=== PATIENT | female | born 1950 | race Caucasian/White ===

== ENCOUNTER → 2016-06-26 | Outpatient (CLI) | payer OTHER ==
[~2016-06-26] MED LIST: LIDOCAINE 1% 30 ML SDV ONE; NA BICARBONATE 50 MEQ/50 ML VIAL ONE
--- NOTE | 2016-06-26 13:59 | DX ---
AP portable chest - June 26, 2016 Indication: Evaluate pneumothorax after thoracentesis. Comparison: May 05, 2016. Findings: There is evacuation of right-sided pleural effusion. No pneumothorax. Left-sided port and bilateral breast implants are noted. Impression: No pneumothorax after right-sided thoracentesis.
--- NOTE | 2016-06-26 16:45 | US ---
Ultrasound-guided right thoracentesis Indication: Breast cancer. New onset pleural effusion. Informed consent: Obtained from the patient. Risks and benefits were discussed. Crosscutting Measure: Patient's current list of medications including all known prescriptions, over- the-counters, herbals, and vitamin/mineral/dietary supplements are reviewed. Medications' name, dosa ge, frequency, and route of administration are confirmed. The patient is a non-smoker. Prophylactic Antibiotic: Cefazolin was not ordered and administered for antimicrobial prophylaxis be cause it was not medically necessary. VTE Prophylaxis: There is not an order for VTE prophylaxis to be given within 24 hours of the proced ure end time. VTE prophylaxis was not given because it was not medically necessary. Technique: Patient was placed in upright position. A "timeout" procedure was performed to identify the correct patient and the correct procedure. 1% Xylocaine was used for local anesthetic. All jona ments of maximal sterile barrier technique including cap, mask, sterile gown, sterile gloves, large s terile sheet, hand hygiene, and 2% chlorhexidine for cutaneous antisepsis, followed. Ultrasound evaluation of potential access site was performed. A permanent recording was created for t he patient's record. When ultrasound is used, sterile gel and probe covers are used. 6-Turkmen Yueh needle was inserted via intercostal approach of the posterolateral chest. Of note, the lung edge seems to come across pretty close to the lateral edge. A small window was there to enter th e pleural effusion. Ultrasound guidance confirms satisfactory placement of the needle. 600 mL of slightly serosanguineous, yellowish pleural effusion were aspirated, and sent for requested labs. Patient tolerated the procedure well. Impression: Ultrasound-guided right thoracentesis, yielding 600 mL of serosanguineous pleural effusio n, sent for requested labs.
== END ==
LOC: FIMAGING 12:22
PROVIDERS: ATTEND Internal Medicine Hematology & Oncology
PROC: 0W993ZZ Drainage of Right Pleural Cavity, Percutaneous Approach (ICD-10-PCS; principal; 2016-06-26)
DX: C50.919 Malignant neoplasm of unspecified site of unspecified female breast (principal); J91.0 Malignant pleural effusion

== ENCOUNTER 2016-07-24 13:35 | Inpatient (IN) | payer OTHER ==
[2016-07-24] MEDS ORDERED: PROMETHAZINE HCL 25 MG TAB PO PRN (14:41)
[2016-07-24] MEDS ORDERED: oxyCODONE IR 5 MG TAB PO PRN (14:41)
[2016-07-24] MEDS ORDERED: ONDANSETRON DISINTEGRATING 4 MG TAB PO PRN ×2 (14:41→15:51)
[2016-07-24] MEDS ORDERED: PROMETHAZINE HCL 25 MG/ML INJ IVP PRN (14:41)
[2016-07-24] MEDS ORDERED: ONDANSETRON 4 MG/2 ML VIAL IVP PRN (14:41)
[2016-07-24] MEDS ORDERED: LORazepam 1 MG TAB PO PRN (15:50)
--- NOTE | 2016-07-24 15:54 | PDGENHP ---
History and Physical - Chief Complaint Acute nausea - History of Present Illness Primary oncologist: Dr. Nice HPI: 66-year-old female presenting with acute nausea characterized as a queasiness located in the anterior abdomen with associated ileus vomiting, shortness of breath onset of symptoms approximately 3 weeks ago. She notes that she initially felt like she was experiencing abdominal distension 3 weeks ago and duration has been persistent thereafter. She also noted shortness of breath which is exacerbated by ambulating upstairs or lying supine. Her nausea is exacerbated by oral intake of solids and liquids, alleviated by bowel rest. She reports that her last bowel movement was yesterday and was normal appearing. She denies any urinary symptoms although her poor oral intake of liquids has resulted in poor urine output. She utilizes Ativan as needed to sleep and she has tolerated Zofran in the past but has not received particular benefit from it. History Information - Allergies/Home Medication List Allergies/Adverse Reactions: ciprofloxacin Allergy (Verified 05/04/16 14:23) Home Medications: Hydrochlorothiazide [HCTZ (*)] 12.5 mg PO DAILY 07/24/16 [Last Taken 07/23/16] LORAZEPAM [LORAZEPAM] 0.5 - 1.5 mg PO HS 07/24/16 [Last Taken 07/23/16 1.5] I have personally reviewed and updated: family history, medical history, social history, surgical history - Past Medical History Additional medical history: Breast cancer diagnosed 1992, stage IV, status post surgery, XRT, chemotherapy, recently initiated on Herceptin in April of 2016 most recent dosage was 4 days ago. Fibromyalgia. Anxiety disorder. Osteoarthritis. Chronic leukocytosis with baseline white blood cell count 10, 000-14,000. Chronic transaminitis since February of 2016 - Surgical History Additional surgical history: Thoracentesis 06/26/2016. Bilateral mastectomy. Breast biopsy. Lumpectomy. Carpal tunnel surgery. Knee surgery. Tonsillectomy. - Family History Additional family history: No family history of venous thromboembolism, no recent sick family contacts - Social History Smoking Status: Former smoker Alcohol Use: None Drug Use: None Additional social history: Independent in ADLs Review of Systems ROS: 10pt was reviewed & negative except for what was stated in HPI & below Constitutional: Reports: malaise, weakness Respiratory: Reports: shortness of breath Gastrointestinal: Reports: vomitting, nausea Physical Exam Temp Pulse Resp BP Pulse Ox 36.7 C 99 21 H 174/105 H 93 07/24/16 15:22 07/24/16 15:22 07/24/16 15:22 07/24/16 15:22 07/24/16 15:22 O2 (L/minute) 2 Constitutional: not in pain, chronically ill appearing, uncomfortable, cachectic Eyes: PERRL, anicteric sclera, EOMI Ears, Nose, Mouth, Throat: hearing normal, ears appear normal, other (Dry mucous membranes) Cardiovascular: systolic murmur (106 systolic murmur at the sternum), tachycardia, No irregularly irregular, No edema Respiratory: reduced air movement (Right base), inspiratory crackles (Left base) , No expiratory wheeze, No bronchial breath sounds Gastrointestinal: normoactive bowel sounds, ascites, distension (Moderate), other (Nontender hepatomegaly) Genitourinary: no bladder fullness, other (Potential bladder tenderness) Skin: warm, normal color, no rashes or abrasions, no fluctuance, no induration, No mottled Neurologic: AAOx3, sensation intact bilaterally, No weakness Psychiatric: interacting appropriately, not anxious, not encephalopathic, thought process linear Lab Data & Imaging Review Visualized and Interpreted Chest x-ray results: Yes Chest X-Ray results: other (Right effusion has cleared status post thoracentesis ) Assessment & Plan Assessment: 66-year-old female presenting with acute nausea and vomiting in the setting of metastatic breast cancer, new onset ascites Plan: 1. Nausea and vomiting. Acute, new problem, further workup indicated. Although it is most likely secondary to combination of metastatic liver lesions as well as ascites, spontaneous bacterial peritonitis should be ruled out as should urinary tract infection -get urinalysis -get diagnostic and therapeutic paracentesis with ultrasound guidance -treat supportively with Zofran and Ativan as needed -low rate IV fluids -advance diet as tolerates 2. Ascites. New onset, with leukocytosis and abdominal symptoms, rule out SBP with paracentesis at this time 3. Stage IV breast cancer. Discussed with [facility] nurse practitioner Bella, she has reported to me that Dr. Bee has been contacted and will consult in this patient's care, has also requested CT of the chest abdomen and pelvis with IV contrast for restaging (evaluating previous right- sided pleural effusion which also appears to be recurrent on physical exam, evaluating known liver lesions, evaluating for carcinamatosis) 4. Transaminitis. Reviewed outside records including last time the patient's liver enzymes were within normal range, 03/27/2016 liver panel, most likely secondary to her liver metastases -the patient denies any recent alcohol intake -avoid Tylenol -get abdominal imaging as outlined above 5. Severe protein calorie malnutrition. Evidenced by proximal muscle wasting, cachexia, in the setting of stage IV malignancy -get dietary consult -Ensure with meals Diet. Regular diet with Ensure Prophylaxis. High risk patient, Lovenox 40 Code. Full, per patient, and daughter are MPOA. Disposition. Anticipated discharge uncertain this time, anticipated length stay is greater than 48 hours warranting inpatient admission status for acute nausea and vomiting in the setting of new onset ascites warranting further workup and therapeutic treatment in the setting of high risk comorbid stage IV breast cancer protein calorie malnutrition, transaminitis. Patient is high risk for worsening morbidity and mortality
[2016-07-24 15:55] LABS: APTT 39.9 SEC (23.0-38.0)
[2016-07-24 15:58] LABS: INR 1.17 (0.83-1.16); PROTIME(PATIENT) 14.9 SEC (12.0-15.0)
[2016-07-24] MEDS ORDERED: NA BICARBONATE 50 MEQ/50 ML VIAL ONE (16:49)
--- NOTE | 2016-07-24 17:20 | GCON ---
INPATIENT ONCOLOGY CONSULTATION DATE OF CONSULTATION: 07/24/2016 REFERRING PHYSICIAN: Rivera Breaux MD OUTPATIENT ONCOLOGIST: Dr. Johnie Nice REASON FOR CONSULTATION: Progressive metastatic breast cancer. HISTORY PRESENT ILLNESS: The patient is a 66-year-old woman with metastatic breast cancer. Her onc ologic history dates back to 1992 when she was diagnosed with early stage disease in the right breas t. She underwent lumpectomy and radiation followed by adjuvant chemotherapy and antiestrogen therap y. She had a metastatic recurrence in 2010 and since then has had multiple other lines of therapy i ncluding Faslodex, Xeloda, gemcitabine, eribulin, and Abraxane. Several months ago she developed pr ogressive disease in the liver and a biopsy was performed. This showed that the tumor was now HER-2 positive. Herceptin was added to her regimen, but a CT scan in May showed marked progression o f the disease in the liver. She was then changed to Kadcyla and she has received 2 doses of that. Also, over the course this month she has developed hypercalcemia of malignancy and has received bill ral doses of Zometa. In general, she has felt very weak and tired and spends most of her time lying down. She has very poor appetite and has nausea and vomiting if she tries to the eat much of subst ance. She has been in the [facility] almost daily for IV fluids. She did have a thoracentesis on the right side in the past. She notes developing progressive abdominal swelling and may have ma lignant ascites. PAST MEDICAL HISTORY: 1. Breast cancer as described above. 2. Otherwise unremarkable. CURRENT MEDICATIONS: Include Lovenox subcu, Ativan, and Zofran. ALLERGIES: Cipro. FAMILY HISTORY: Noncontributory. SOCIAL HISTORY: She is a nonsmoker, nondrinker. She lives with her . REVIEW OF SYSTEMS: Other than pertinent positives in the HPI, a 14-point review of systems was nega tive. PHYSICAL EXAMINATION: VITAL SIGNS: Temperature is 36.7, blood pressure 174/105, heart rate 99, oxy gen saturation 93% on 2 L. GENERAL: She is a frail cachectic-appearing woman who appears tired. H EENT: Sclerae are anicteric. Oropharynx is clear. NECK: Supple without lymphadenopathy. LUNGS: Notable for dullness to percussion with absent breath sounds in the lower right lung. CARDIAC: Re gular rate and rhythm. No murmurs, gallops, or rubs. ABDOMEN: Normoactive bowel sounds. It is ma rkedly distended. I do not appreciate any splenomegaly. EXTREMITIES: Without edema. SKIN: No pe techiae, purpura. NEUROLOGIC: She is tired but alert and oriented x3. LABORATORY DATA: From today, white count 11.6, hemoglobin of 12.9, platelets of 155. Sodium 136, p otassium 3.3, chloride of 105, bicarb of 24, BUN 7, creatinine 0.5, calcium 9.9, ionized calcium 1.3 , total bilirubin 1.8, AST is 453, ALT 98, alk phos 382, albumin 3.0. IMPRESSION: This is a 66-year-old woman with longstanding metastatic breast cancer. Her disease ce rtainly appears to have accelerated over the past several months and is behaving quite aggressively. Her tumor markers, CEA, and CA27.29 have been rising and this is concerning for progressive diseas e despite 2 lines of [id number] therapy. Her overall performance status is poor. In terms of symptom relief, I agree with getting a paracentesis to see if that may help some of her symptoms. Her hypercalcemia has been appropriately treated. We will also get a CT scan to evaluate for progressive disease which also could certainly explain her symptoms. She has not had much of a chance yet to discuss her overall prognosis is Dr. Nice, though she mad e the appointment for 2 days from now with him to discuss these issues. In general, my impression i s that her overall prognosis is poor given that her disease does not appear to be responding to ther apy and it is behaving fairly aggressively. I recommended a palliative care consult which she is ag reeable to doing. Her is designated as her medical power of senior attorney though she has not yet signed a DNR order and did not want to discuss that this evening with me. I will continue to follow the patient with you closely while she is in the hospital and look forward to the recommendations of the palliative care team. /[id number]/MODL
[2016-07-24] MEDS ORDERED: IOPAMIDOL (ISOVUE-300) 100 ML BTL IV ONE (17:56)
[2016-07-24 18:34] LABS: GLUCOSE, PERITONEAL FLUID 89 mg/dL (55-113)
[2016-07-24] MEDS: D5W 1/2 NS W/ 40 KCl/L 1,000 ML IV SCH (18:42)
[2016-07-24] MEDS: LORazepam 0.5 MG TAB PO SCH (21:13)
[2016-07-24 21:49] LABS: COLOR YELLOW; LEUKOCYTE ESTERASE,URINE NEGATIVE (NEGATIVE); NITRITE,URINE NEGATIVE (NEGATIVE)
[2016-07-24 21:52] LABS: MUCUS TRACE /lpf (NONE-1+)
[2016-07-25] MEDS: ONDANSETRON 4 MG/2 ML VIAL IVP PRN ×3 (00:59→16:22)
[2016-07-25] MEDS: hydrALAZINE 25 MG TAB PO PRN ×3 (01:08→18:42)
[2016-07-25] MEDS: PROMETHAZINE HCL 25 MG/ML INJ IVP PRN ×2 (05:12→19:46)
[2016-07-25] MEDS: LORazepam 2 MG/ML INJ IVP PRN (05:26)
[2016-07-25 06:12] LABS: % IMMATURE GRANULYOCYTES 0.5 % (0.0-1.1); ABSOLUTE IMMATURE GRANULOCYTES 0.08 10^3/uL (0.00-0.10); ADD DIFF? NO; ADD MORPH? NO; ADD SCAN? NO; ATYPICAL LYMPHOCYTE FLAG 10 (0-99); FRAGMENT RBC FLAG 20 (0-99); HEMATOCRIT 38.6 % (38.0-47.0); HEMOGLOBIN 13.1 g/dL (12.6-16.3); LEFT SHIFT FLG 0 (0-99); LIPEMIA HEMOLYSIS FLAG 90 (0-99); MEAN CELL HEMOGLOBIN 27.3 pg (27.9-34.1); MEAN CELL HEMOGLOBIN CONCENTR. 33.9 g/dL (32.4-36.7); MEAN CELL VOLUME 80.4 fL (81.5-99.8); PLATELET CLUMPS FLAG 10 (0-99); PLATELET COUNT 134 10^3/uL (150-400); RED CELL DISTRIBUTION WIDTH 18.1 % (11.5-15.2)
[2016-07-25 06:23] LABS: ALANINE AMINOTRANSFERASE 93 IU/L (9-52); ALBUMIN 2.9 g/dL (3.5-5.0); ALKALINE PHOSPHATASE 399 IU/L (38-126); ANION GAP 4 mEq/L (8-16); ASPARTATE AMINOTRANSFERASE 472 IU/L (14-46); BILIRUBIN,TOTAL 1.9 mg/dL (0.1-1.4); CALCIUM 10.3 mg/dL (8.5-10.4); CARBON DIOXIDE 26 mEq/l (22-31); CHLORIDE 105 mEq/L (97-110); CREATININE 0.5 mg/dL (0.6-1.0); GLOMERULAR FILTRATION RATE > 60; GLUCOSE 115 mg/dL (70-100); POTASSIUM 3.8 mEq/L (3.5-5.2); SODIUM 135 mEq/L (134-144); TOTAL PROTEIN 5.6 g/dL (6.3-8.2)
[2016-07-25] MEDS: HYDROmorphONE/DILAUDID 1 MG/ML SYR IVP PRN (08:44)
[2016-07-25] MEDS: IBUPROFEN 600 MG TAB PO PRN (08:46)
[2016-07-25] MEDS: ENOXAPARIN 40 MG/0.4 ML SYR SC SCH (10:13)
--- NOTE | 2016-07-25 11:30 | SOAPPROG ---
SOAP Progress Note Assessment/Plan: Assessment: Breast cancer, mets to liver. CT shows marked worsening of disease over 5 week period. She has very poor performance status and an aggressive, treatment-refractory disease. In this setting, futher antineoplastic therapy is not appropriate and would almost certainly be ineffective. I recommended hospice. Given the pace of the disease, I think her life expectancy is a matter of weeks. She expressed a desire to make to see her grandchild born in August. We discussed code status and she wishes to be a DNR. I reviewed her living will with her and her which is consistent with this. Plan: - palliative consult ---> likely hospice referral - continue symptom management - please limit vital signs overnight so patient can sleep - will try zyprexa for refractory nausea 45 min spent w/ pt and in coordination of care. 07/25/16 11:26 Subjective: did not sleep well last night. tired this AM. Objective: exam: cachectic, tired exam otherwise unchanged Vital Signs Temp Pulse Resp BP Pulse Ox 36.8 C 105 H 28 H 156/98 H 93 07/25/16 08:00 07/25/16 08:00 07/25/16 08:00 07/25/16 09:44 07/25/16 08:00 Microbiology 07/24/16 14:44 Gram Stain - Final Peritoneal Fluid - Aspirate Laboratory Results 07/25/16 05:14 07/25/16 05:14 07/24/16 07/25/16 07/26/16 05:59 05:59 05:59 Intake Total 1400 Output Total 850 Balance 550 PT Cancelled 07/24/16 Unknown INR Cancelled 07/24/16 Unknown ICD10 Worksheet Patient Problems: Problems Problem Status Onset Breast cancer Acute - ICD10 Problem Qualifiers (1) Breast cancer Qualifiers: Breast location: B Patient sex: P Laterality: L
[2016-07-25] MEDS ORDERED: OLANZapine 5 MG TAB PO PRN (11:31)
--- NOTE | 2016-07-25 11:44 | HOSPPROG ---
Hospitalist Progress Note Assessment/Plan: 66 yo F with hx of stage 4 breast cancer presenting with persistent n/v # n/v: persistent and likely related to extensive metastatic disease. Does not have significant ascites or e/o obstruction. Given poor prognosis and limited life expectancy will not w/u further at this time, but treat symptomatically with IVF, antiemetics. # uncontrolled htn: in the setting of persistent n/v and likely underlying pain and anxiety. PRN hydralazine and will add labetalol given increased HR as well. # elevated lfts: with extensive metastasis in the liver essentially replacing nearly all the liver parenchyma. As above # metastatic breast cancer: has recently become quite aggressive and at this point, very unlikely that any further intervention would be helpful. Oncology involved and palliative consulted. Would be appropriate for hospice if patient and her family are amenable to that. # severe protein calorie malnutrition: BMI of 21, weight loss in the setting of stage 4 cancer, dietary involved # bilateral pleural effusions: likely malignant, not in respiratory distress at this point, comfortable on 3L of o2 # dispo: IP status, multiple active comorbid conditions requiring > 48 hour stay Patient new to my care. Old records reviewed and summarized as above. Care plan reviewed with patients family present at bedside. Subjective: no significant overnight events, patient is somnolent, still having significant nausea and was vomiting overnight, has CABRERA Objective: Vital Signs Temp Pulse Resp BP Pulse Ox 36.8 C 105 H 28 H 156/98 H 93 07/25/16 08:00 07/25/16 08:00 07/25/16 08:00 07/25/16 09:44 07/25/16 08:00 Microbiology 07/24/16 14:44 Gram Stain - Final Peritoneal Fluid - Aspirate Laboratory Results 07/25/16 05:14 07/25/16 05:14 07/24/16 07/25/16 07/26/16 05:59 05:59 05:59 Intake Total 1400 Output Total 850 Balance 550 PT Cancelled 07/24/16 Unknown INR Cancelled 07/24/16 Unknown awake somnolent chronically ill appearing anicteric op clear tachy regular no mrg cta with dec bs at bilateral bases soft mildly distended +bs no cce warm dry well perfused oriented appropriate - Time Spent With Patient Time Spent with Patient: greater than 35 minutes Time Spent with Patient: Greater than 35 minutes spent on this patients care, greater than 50% of time spent counseling, educating, and coordinating care regarding the above mentioned plan. ICD10 Worksheet Patient Problems: Problems Problem Status Onset Breast cancer Acute
[2016-07-25] MEDS ORDERED: LABETALOL HCL 5 MG/ML 20 ML MDV IVP PRN (11:45)
--- NOTE | 2016-07-25 14:16 | PDPCPN ---
Palliative Care Progress Note Assessment/Plan: Referring provider: Dr lott Reason for consult: Complex medical decision making Symptom control HPI: Natalie Mccloud is a 66 yo female with PMH breast ca dx 1992 with recurrence 2011 s /p mastectomy and multiple lines of chemotherapy admitted to the hospital with nausea/vomiting and SOB. ct scan with retroperitoneal lymphadenopathy mod R pleural effusion and known liver mets likely progression per oncology. Continues to be very weak and not able to eat much. States nausea is controlled with zofran. Able to drink ensure but not much else due to feeling of being full. Palliative care consulted for complex medical decision making. Met with family inside and outside of the room. They understand Natalie is declining from progressive cancer and treatment directed towards the cancer is not benefiting her at this point. They stated oncology said she has a prognosis of 3-4 weeks and she would like to be at home. Her goals are to see her grandchildren born in early August. We discussed hospice care as a way of caring for someone at home until the end of life. The family would like to meet with [facility] hospice to set up hospice care. Assessment: Physical: - Pain: abdominal pain -dilaudid PRN - Dyspnea: - opiates as above if needed - Oxygen as needed - Nausea/vomiting: - had dizziness/falls with zyprexa - zofran seems to be working for now - steroids would like help best but Natalie wants to hold off for now due to insomnia Emotional/psychological: anxiety: ativan sandra QHS and PRN Advanced Care Planning: Is patient decisional?: yes Code Status: DNR POA: Tello is MDPOA. Plan: Family would like to meet with [facility] hospice tomorrow afternoon. They also are planning on speaking with Dr Nice who knows her very well. Subjective: I'm very tired today Objective: Social History: to [place] for 44 years. 2 daughters involved. 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 Medication list reviewed ROS: General: fatigue, weakness, weight loss ENT: negative Resp: negative GI: poor appetite : negative MS: occasional liver pain Skin: negative Neuro: negative Psych: insomnia with steroids, anxiety Functional assessment: PPS: 40% Functional status: needs some assistance with ADLs Vital Signs Temp Pulse Resp BP Pulse Ox 36.8 C 105 H 28 H 156/98 H 93 07/25/16 08:00 07/25/16 08:00 07/25/16 08:00 07/25/16 09:44 07/25/16 08:00 Microbiology 07/24/16 14:44 Gram Stain - Final Peritoneal Fluid - Aspirate Laboratory Results 07/25/16 05:14 07/25/16 05:14 07/24/16 07/25/16 07/26/16 05:59 05:59 05:59 Intake Total 1400 Output Total 850 Balance 550 PT Cancelled 07/24/16 Unknown INR Cancelled 07/24/16 Unknown Physical Exam - Physical Exam General Appearance: alert, no apparent distress Respiratory: No respiratory distress, No accessory muscle use Skin: normal color, warm/dry Extremities: No pedal edema Neuro/Psych: alert, oriented x 3 ICD10 Worksheet Patient Problems: Problems Problem Status Onset Breast cancer Acute Palliative care encounter Acute - ICD10 Problem Qualifiers (1) Palliative care encounter
[2016-07-25] MEDS: D5W 1/2 NS W/ 40 KCl/L 1,000 ML IV SCH (18:06)
[2016-07-25] MEDS: LORazepam 0.5 MG TAB PO SCH (21:10)
[2016-07-26] MEDS: PROMETHAZINE HCL 25 MG/ML INJ IVP PRN (04:26)
[2016-07-26] MEDS: D5W 1/2 NS W/ 40 KCl/L 1,000 ML IV SCH (04:27)
[2016-07-26] MEDS: HYDROmorphONE/DILAUDID 1 MG/ML SYR IVP PRN (04:33)
[2016-07-26 05:04] LABS: % IMMATURE GRANULYOCYTES 0.5 % (0.0-1.1); ABSOLUTE IMMATURE GRANULOCYTES 0.07 10^3/uL (0.00-0.10); ADD DIFF? NO; ADD MORPH? NO; ADD SCAN? NO; ATYPICAL LYMPHOCYTE FLAG 10 (0-99); FRAGMENT RBC FLAG 20 (0-99); HEMATOCRIT 41.6 % (38.0-47.0); HEMOGLOBIN 13.8 g/dL (12.6-16.3); LEFT SHIFT FLG 0 (0-99); LIPEMIA HEMOLYSIS FLAG 80 (0-99); MEAN CELL HEMOGLOBIN 26.8 pg (27.9-34.1); MEAN CELL HEMOGLOBIN CONCENTR. 33.2 g/dL (32.4-36.7); MEAN CELL VOLUME 80.8 fL (81.5-99.8); PLATELET CLUMPS FLAG 20 (0-99); PLATELET COUNT 165 10^3/uL (150-400); RED BLOOD CELL COUNT 5.15 10^6/uL (4.18-5.33); RED CELL DISTRIBUTION WIDTH 18.6 % (11.5-15.2)
[2016-07-26 05:08] LABS: ALANINE AMINOTRANSFERASE 88 IU/L (9-52); ALBUMIN 2.9 g/dL (3.5-5.0); ALKALINE PHOSPHATASE 386 IU/L (38-126); ANION GAP 6 mEq/L (8-16); ASPARTATE AMINOTRANSFERASE 471 IU/L (14-46); BILIRUBIN,TOTAL 1.9 mg/dL (0.1-1.4); CALCIUM 11.2 mg/dL (8.5-10.4); CARBON DIOXIDE 25 mEq/l (22-31); CHLORIDE 102 mEq/L (97-110); CREATININE 0.5 mg/dL (0.6-1.0); GLOMERULAR FILTRATION RATE > 60; GLUCOSE 110 mg/dL (70-100); POTASSIUM 4.4 mEq/L (3.5-5.2); SODIUM 133 mEq/L (134-144); TOTAL PROTEIN 5.7 g/dL (6.3-8.2)
[2016-07-26 07:23] VITALS: TEMP 97.7
[2016-07-26] MEDS: IBUPROFEN 600 MG TAB PO PRN (07:24)
[2016-07-26] MEDS: hydrALAZINE 25 MG TAB PO PRN (07:25)
[2016-07-26] MEDS: ONDANSETRON 4 MG/2 ML VIAL IVP PRN ×2 (09:10→14:10)
[2016-07-26 09:50] VITALS: BP 154/71; PULSE 119; RESP 26; O2SAT 97
[2016-07-26] MEDS: ENOXAPARIN 40 MG/0.4 ML SYR SC SCH (10:11)
--- NOTE | 2016-07-26 10:18 | SOAPPROG ---
SOAP Progress Note Assessment/Plan: Assessment: Breast cancer, mets to liver. CT shows marked worsening of disease over 5 week period. Plan: - hospice consult today. may go to care center for a few days or directly home - back off on antihypertensives - would treat her headache with NDAIDs or opioids - will cut back on IV fluids as these tend to cause fluid overload at the end of life. d/w Dr. Villareal and RN from hospice. Subjective: very tired still. no vomiting. Objective: exam unchanged Vital Signs Temp Pulse Resp BP Pulse Ox 36.5 C 119 H 26 H 154/71 H 97 07/26/16 07:18 07/26/16 09:48 07/26/16 09:48 07/26/16 09:48 07/26/16 09:48 Microbiology 07/24/16 14:44 Gram Stain - Final Peritoneal Fluid - Aspirate Laboratory Results 07/26/16 04:40 07/26/16 04:40 07/25/16 07/26/16 07/27/16 05:59 05:59 05:59 Intake Total 1400 1545 150 Output Total 850 2050 350 Balance 550 -505 -200 PT Cancelled 07/24/16 Unknown INR Cancelled 07/24/16 Unknown - Time Spent With Patient Time Spent With Patient: 25 min ICD10 Worksheet Patient Problems: Problems Problem Status Onset Breast cancer Acute Palliative care encounter Acute - ICD10 Problem Qualifiers (1) Breast cancer Qualifiers: Breast location: B Patient sex: P Laterality: L
[2016-07-26] MEDS: LORazepam 2 MG/ML INJ IVP PRN (14:19)
--- NOTE | 2016-07-26 15:38 | PDDCSUM ---
Discharge Summary Discharge Summary: Dates of service 07/24-07/26/26 # persistent n/v # diffuse metastatic breast cancer # uncontrolled htn # spcm # bilateral pleural effusion # acute hypoxic respiratory failure consultations: oncology, palliative care Procedures performed: none Hospital course by problem: # n/v: persistent and likely related to extensive metastatic disease. Reviewed with oncology and there is likely no great options for tx, will continue to tx conservatively # uncontrolled htn: in the setting of persistent n/v and likely underlying pain and anxiety. given goals of care, will not treat further # elevated lfts: with extensive metastasis in the liver essentially replacing nearly all the liver parenchyma. As above # metastatic breast cancer: has recently become quite aggressive and at this point, no further plan for treatment at this time, plan is for hospice # severe protein calorie malnutrition: BMI of 21, weight loss in the setting of stage 4 cancer, dietary involved # bilateral pleural effusions: likely malignant, not in respiratory distress at this point, comfortable on 3L of o2 # acute hypoxic respiratory failure: related to above Dispo: dc to hospice f/u with hospice md > 35 min spent in dc of this patient more than half in coordination of care
--- NOTE | 2016-07-26 15:38 | PDIAF ---
- Diagnosis Code Status: Do Not Resuscitate - Medication Management Discharge Medications: Medications to Continue on Transfer LORAZEPAM 0.5 - 1.5 mg PO HS 07/24/16 [Last Taken 07/23/16 1.5] HYDROmorphone HCL [Dilaudid] 0.2 - 0.4 mg IVP Q4HRS PRN #0 syr 07/26/16 [Last Taken Unknown] Ibuprofen [Motrin (*)] 600 mg PO Q6HRS PRN #0 tab 07/26/16 [Last Taken Unknown] LORazepam [Ativan (*)] 0.5 - 1 mg PO Q4HRS PRN #0 tab 07/26/16 [Last Taken Unknown] LORazepam [Ativan inj 2 mg/ml (*)] 0.5 - 1 mg IVP Q4HRS PRN #0 inj 07/26/16 [ Last Taken Unknown] OLANZapine [OLANZapine (*)] 5 mg PO BID PRN #0 tab 07/26/16 [Last Taken Unknown] Ondansetron Odt [Zofran Odt 4 mg (*)] 4 - 8 mg PO Q4HRS PRN #0 tab 07/26/16 [ Last Taken Unknown] Promethazine HCl [Phenergan Injection] 6.25 - 12.5 mg IVP Q6HRS PRN #0 inj 07/26 [Last Taken Unknown] Discharge Medications: Refer to the Discharge Home Medication list for PRN reason. - Orders Services needed: Home Care, Registered Nurse, Certified [employer] Home Care Face to Face: I certify that this patient was under my care and that I had the required [id number] encounter meeting the encounter requirements on the discharge day. My findings support the fact that the patient is homebound as defined in CMS Chapter 7 Medicare Benefits Manual 30.1.1, The condition of the patient is such that there exists a normal inability to leave home and consequently, leaving home would require a considerable and taxing effort. Diet Recommendation: no restrictions on diet - Follow Up Care Current Providers and Referrals: Sandra Tripp MD [Primary Care Provider] -
== END 2016-07-26 17:19 | disposition hospice, home (50) | DRG 435 ==
LOC: F1N 14:00 → OBSVTOIN 14:41
PROVIDERS: ADMIT Internal Medicine; ATTEND Internal Medicine
PROC: 0W9G3ZX Drainage of Peritoneal Cavity, Percutaneous Approach, Diagnostic (ICD-10-PCS; principal; 2016-07-24)
DX: C78.7 Secondary malignant neoplasm of liver and intrahepatic bile duct (principal); C50.919 Malignant neoplasm of unspecified site of unspecified female breast; E43 Unspecified severe protein-calorie malnutrition; R18.8 Other ascites; R74.0 Nonspecific elevation of levels of transaminase and lactic acid dehydrogenase [LDH]; J90 Pleural effusion, not elsewhere classified; I10 Essential (primary) hypertension; F41.9 Anxiety disorder, unspecified; Z66 Do not resuscitate; Z51.5 Encounter for palliative care
CPT/HCPCS: J1170; J2405; J2550; J3490; Q9967